=== PATIENT | male | born 1960 | race Caucasian/White ===

== ENCOUNTER 2025-04-23 17:52 | Inpatient (IN) | payer MEDICARE, BC ==
[~2025-04-23] VITALS: Ht 185.4 cm; Wt 83.0 kg
--- NOTE | 2025-04-23 18:20 | NUR ---
LLQ ABDOMINAL DISCOMFORT X 2 DAYS
[2025-04-23 18:31] VITALS: O2SAT 96
--- NOTE | 2025-04-23 18:32 | NUR ---
PA AT BEDSIDE FOR EVAL
--- NOTE | 2025-04-23 18:33 | NUR ---
URINE SENT TO LAB
--- NOTE | 2025-04-23 18:33 | NUR ---
SAMIRA SENT TO LAB
[2025-04-23 18:36] LABS: PLATELET COUNT (AUTO) 194 K/uL (150-450); RED BLOOD CELL COUNT(AUTO) 4.92 MIL/uL (4.5-6.0); RED CELL DISTRIBUTION WIDTH 12.7 % (11.5-15.0); WHITE BLOOD COUNT (AUTO) 6.6 K/uL (4.3-11.0)
[2025-04-23 18:37] LABS: APPEARANCE,URINE CLEAR (CLEAR); BLOOD, URINE Trace-lysed Ery/uL (NEGATIVE); LEUKOCYTE ESTERASE ,URINE Negative (NEGATIVE); NITRITE, URINE NEGATIVE (NEGATIVE); UGLUCOSE Negative (NEGATIVE)
[2025-04-23 18:43] LABS: CALCIUM, SERUM 8.6 mg/dL (8.5-10.1); CREATININE 0.9 mg/dL (0.6-1.3); SODIUM SERUM 137.0 mmol/L (136-145); UREA NITROGEN, BLOOD 10.0 mg/dL (7-18)
[2025-04-23 18:49] LABS: ASPARTATE AMINOTRANSFERASE 17.0 U/L (15-37); TOTAL PROTEIN, SERUM 6.8 g/dL (6.4-8.2)
[2025-04-23 18:50] LABS: ADD URINE CULTURE NO; SQUAMOUS EPITHELIAL CELL,UR None Seen /HPF (None Seen)
[2025-04-23] MEDS ORDERED: IV NS 0.9% 250 ML IV ONE (18:52)
[2025-04-23] MEDS ORDERED: IOHEXOL-300 100 ML VIAL IV ONE (18:52)
[2025-04-23] MEDS ORDERED: KETOROLAC TROMETHAMINE 15 MG/ML VIAL ONE (18:58)
--- NOTE | 2025-04-23 18:59 | NUR ---
PT WHEELED TO RADIO [facility]IA [employer] BY [employer] IN STABLE CONDITION.
[2025-04-23] MEDS: IV NS 0.9% 1,000 ML BAG IV ONE (19:11)
[2025-04-23] MEDS: KETOROLAC TROMETHAMINE 15 MG/ML VIAL IV ONE (19:12)
--- NOTE | 2025-04-23 19:55 | NUR ---
DONAVAN GILMORE PA ON THE PHONE WITH DR GARCIA, GEN SURG
[2025-04-23] MEDS ORDERED: PIPERACI/TAZO 3.375GM/D5W 50ML PB IV ONE (20:35)
[2025-04-23] MEDS: PIPERACILLIN /TAZOBACTAM 3.375 G in IV D5W 50 ML IV ONE (20:36)
--- NOTE | 2025-04-23 20:42 | NUR ---
ORDERED NPO PER DR GARCIA, GEN SURG. DEMETRIO WALTER.
[2025-04-23] MEDS ORDERED: IV D5/0.45 NACL 1,000 ML IV PRN (21:00)
[2025-04-23] MEDS ORDERED: MORPHINE SULFATE INJ 2 MG/ML DISP.SYRIN IV PRN (21:00)
[2025-04-23] MEDS ORDERED: ONDANSETRON HCL/PF 4 MG/2 ML VIAL IVP PRN (21:00)
[2025-04-23] MEDS ORDERED: ACETAMINOPHEN 650 MG/SUPP.RECT RC PRN (21:00)
--- NOTE | 2025-04-23 21:07 | NUR ---
REPORT GIVEN TO 3 W
--- NOTE | 2025-04-23 21:27 | NUR ---
GETTING TRANSFERRED TO 320 IN SABLE CONDITION.
--- NOTE | 2025-04-23 21:40 | NUR ---
NEW ADMIT FROM ER, PT AWAKE,ALERT AND ORIENTEDX4,VSS,DENIES PAIN,SKIN WARM,DRY AND INTACT.WILL NOTIFY MD FOR ORDERS,,
[2025-04-23] MEDS ORDERED: HYDROCODONE/APAP 5/325MG TABLET PO PRN (23:00)
[2025-04-23] MEDS: ALPRAZOLAM 0.25 MG TABLET PO PRN (23:19)
[2025-04-24] MEDS: PIPERACI/TAZO 3.375GM/D5W 50ML PB IV ONE (02:41)
[2025-04-24] MEDS: PIPERACILLIN /TAZOBACTAM 3.375 G in IV D5W 50 ML IV SCH (02:45)
[2025-04-24 06:09] LABS: PLATELET COUNT (AUTO) 177 K/uL (150-450); RED BLOOD CELL COUNT(AUTO) 5.03 MIL/uL (4.5-6.0); RED CELL DISTRIBUTION WIDTH 12.9 % (11.5-15.0); WHITE BLOOD COUNT (AUTO) 6.8 K/uL (4.3-11.0)
[2025-04-24 06:25] LABS: CALCIUM, SERUM 8.6 mg/dL (8.5-10.1); CREATININE 0.8 mg/dL (0.6-1.3); PHOSPHORUS 3.7 mg/dL (2.5-4.9); SODIUM SERUM 139.0 mmol/L (136-145); UREA NITROGEN, BLOOD 8.0 mg/dL (7-18)
--- NOTE | 2025-04-24 07:00 | NUR ---
CLOSING NOTES PT ENDORSED TO AM NURSE.PT REMAINS STABLE.. ALL DUE MEDS GIVEN,EMIL WELL..
--- NOTE | 2025-04-24 07:16 | NUR ---
MS RN NOTE RECEIVED PATIENT IN BED AWAKE ALERT AND ORIENTED X 4, ABLE TO MAKE NEEDS KNOWN. ON ROOM AIR WITH NO SIGNS OF DISTRESS. DENIES PAIN OR DISCOMFORT. WITH IV ACCESS ON THE RIGHT ARM G20 ON SALINE LOCK, PATENT AND INTACT. COMFORT MEASURES PROVIDED. SAFETY MEASURES ENSURED, WITH BED ON LOW LOCKED POSITION, ALARM ON, SIDERAILS UP AND CALL LIGHT WITHIN REACH AT ALL TIMES.
[2025-04-24 08:00] VITALS: BP 145/84; TEMP 97.7; O2SAT 98
[2025-04-24] MEDS ORDERED: ALPR0.5T8 PO (09:56)
[2025-04-24] MEDS ORDERED: ATOR20TA PO (09:56)
[2025-04-24] MEDS: PANTOPRAZOLE 40 MG VIAL IV SCH (10:05)
--- NOTE | 2025-04-24 14:00 | NUR ---
RN NOTE PATIENT SEEN BY HOSPITALIST BARRY, AWAITING SURGERY CLEARANCE. PATIENT TOLERATED SOFT DIET. NOT IN DISTRESS. COMFORT MEASURE PROVIDED. NOT IN DISTRESS.
[2025-04-24] MEDS ORDERED: AMOX-430 PO (15:42)
--- NOTE | 2025-04-24 16:30 | NUR ---
RN NOTE ALL BELONGINGS ACCOUNTED FOR. BELONGINGS LIST DISCHARGED PAPERS SIGNED AND ATTACHED TO CHART. IV ACCESS REMOVED COVERED BY DRY DRESSING, TOLERATED WELL. IN STABLE CONDITION.
--- NOTE | 2025-04-24 16:30 | NUR ---
RN NOTE PATIENT IN STABLE CONDITION. CLEARED BY SURGEON DR. WREN. HEALTH TEACHING DONE REGARDING DISCHARGE AND DISCHARGE INSTRUCTIONS. VERBALIZED UNDERSTANDING AND APPRECIATION. NOT IN DISTRESS. PATIENT ACCOMPANIED TO LOBBY AND PICKED UP BY FRIEND. ENDORSED TO NEXT SHIFT FOR CONTINUITY OF CARE.
== END 2025-04-24 17:00 | disposition home or self-care (01) | DRG 392 ==
LOC: ER 17:59 → MED 21:13
PROVIDERS: ADMIT Nurse Practitioner Family
DX: K57.32 Diverticulitis of large intestine without perforation or abscess without bleeding (principal); E44.1 Mild protein-calorie malnutrition; I10 Essential (primary) hypertension; E88.09 Other disorders of plasma-protein metabolism, not elsewhere classified; Z68.24 Body mass index [BMI] 24.0-24.9, adult
CPT/HCPCS: 36415; 80048-TC; 80076-TC; 81001; 83690-TC; 83735-TC; 84100-TC; 85025-TC; G0378; J1885; J2470; J2543; J7050; J7060; Q9967